=== PATIENT | male | born 1960 ===

== ENCOUNTER 2018-11-24 22:51 | Emergency (ER) | payer MEDICARE ==
[~2018-11-24 22:51] MED LIST: ETOMIDATE 20 MG/10 ML ONE; PROPOFOL 10 MG/ML, 100ML IV ONE; SUCCINYLCHOLINE 20 MG/ML, 10ML ONE
[2018-11-24] MEDS ORDERED: SODIUM CHLORIDE FLUSH 10ML SYR IVF ONE (23:00)
[2018-11-24] MEDS ORDERED: SODIUM CHLORIDE 0.9% 1,000ML IVBOLUS ONE (23:30)
--- NOTE | 2018-11-24 23:30 | NUR ---
PT BIB CARE FLIGHT WITH LOW BP 70/30 POOR O2 SATS @ 80% AND DIFFICULT TO AWAKEN. TRYING TO DERTRMINE CODE STATUS AT THIS TIME.
[2018-11-24] MEDS ORDERED: VANCOMYCIN 2,200 MG in SODIUM CHLORIDE 0.9% 500 ML IV ONE (23:45)
[2018-11-24 23:46] LABS: MEAN CORPUSCULAR HEMOGLOBIN 23.9 pg (27.5-34.5); MEAN CORPUSCULAR HGB CONC 31.4 g/dL (33.2-36.2); MEAN CORPUSCULAR VOLUME 75.9 fL (81-97); MEAN PLATELET VOLUME 8.3 fL (7.4-10.4); PLATELET COUNT 231 x10^3/uL (130-400); RED BLOOD COUNT 4.72 x10^6/uL (4.38-5.82); RED CELL DISTRIBUTION WIDTH 21.7 % (9.4-14.8)
[2018-11-24 23:48] LABS: ALANINE AMINOTRANSFERASE 39 U/L (12-78); ALBUMIN 1.8 g/dL (3.4-5.0); ANION GAP 10 mmol/L (5-15); CALCIUM 7.9 mg/dL (8.5-10.1); CHLORIDE 93 mmol/L (98-107); CREATININE 3.02 mg/dL (0.7-1.3)
[2018-11-24] MEDS ORDERED: FURO40TA6 PO (23:50)
[2018-11-24] MEDS ORDERED: FEBU40TA PO (23:50)
[2018-11-24] MEDS ORDERED: INSU100C SQ-INSULIN (23:50)
[2018-11-24] MEDS ORDERED: ATOR-2 PO (23:50)
[2018-11-24] MEDS ORDERED: FOLI-17 PO (23:50)
[2018-11-24] MEDS ORDERED: AMIO400T5 PO (23:50)
[2018-11-24] MEDS ORDERED: GABA300C10 PO (23:50)
[2018-11-24] MEDS ORDERED: LACT10SO28 PO (23:50)
[2018-11-24 23:52] LABS: ALKALINE PHOSPHATASE 179 U/L (45-117); BILIRUBIN,TOTAL 1.4 mg/dL (0.2-1.0); TOTAL PROTEIN 6.5 g/dL (6.4-8.2)
[2018-11-24 23:54] LABS: INTERNATIONAL NORMALIZED RATIO 2.79 (0.93-1.1); PROTHROMBIN TIME 28.2 Seconds (9.6-11.5)
[2018-11-24] MEDS ORDERED: LOPE2CAP PO (23:54)
[2018-11-24] MEDS ORDERED: LOSA50TA14 PO (23:54)
[2018-11-24] MEDS ORDERED: METO-290 PO (23:54)
[2018-11-24] MEDS ORDERED: MESA500C PO (23:54)
[2018-11-24 23:59] LABS: TROPONIN I 0.271 ng/mL (0.000-0.045)
[2018-11-24] MEDS ORDERED: POTA10TA11 PO (23:59)
[2018-11-24] MEDS ORDERED: WARF2TAB99 PO (23:59)
[2018-11-24] MEDS ORDERED: RANI150C PO (23:59)
[2018-11-24] MEDS ORDERED: CHOL100011 PO (23:59)
[2018-11-24] MEDS ORDERED: RIFA550T4 PO (23:59)
[2018-11-25] MEDS ORDERED: VANCOMYCIN PER PHARMACY MC PRN
[2018-11-25] MEDS ORDERED: CEFTRIAXONE PMX 1GM/50ML 50 ML IVPB ONE
[2018-11-25] MEDS ORDERED: DAPA1TAB4 PO
[2018-11-25] MEDS ORDERED: AZITHROMYCIN 500 MG in SODIUM CHLORIDE 0.9% 250 ML IVPB ONE
[2018-11-25 00:01] LABS: BASOPHILS # (AUTO) 0.11 x10^3/uL (0-0.1); BASOPHILS % (AUTO) 1 % (0-1); EOSINOPHILS % (AUTO) 0 % (1-7); LYMPHOCYTES # (AUTO) 0.73 x10^3/uL (1-3.4); LYMPHOCYTES % (AUTO) 5 % (22-44); MD MORPH REVIEW ONLY; MONOCYTES # (AUTO) 0.65 x10^3/uL (0.2-0.8); MONOCYTES % (AUTO) 5 % (2-9); NEUTROPHILS # (AUTO) 12.88 x10^3/uL (1.8-6.8); NEUTROPHILS % (AUTO) 90 % (42-75)
[2018-11-25 00:03] LABS: ANISOCYTOSIS 1+; MICROCYTOSIS 1+; OVALOCYTES 1+
[2018-11-25 00:04] LABS: <PLATELET ESTIMATE> ADEQUATE; <PLT MORPHOLOGY> NORMAL PLT MORPH; ACANTHOCYTES 1+; ECHINOCYTES 2+; POLYCHROMASIA 1+
[2018-11-25] MEDS ORDERED: CEFTRIAXONE PMX 1GM/50ML 50 ML ONE (00:09)
--- NOTE | 2018-11-25 00:30 | NUR ---
PT DETERMINED TO WANT TO HAVE LIFE SAVING EFFORTS. PT INTUBATED USING RSI AND CENTRAL LINE PLACED IN RIGHT IJ PLACED
[2018-11-25] MEDS ORDERED: PROPOFOL 100 ML IV PRN (00:54)
[2018-11-25] MEDS ORDERED: NOREPINEPHRINE 4 MG in SODIUM CHLORIDE 0.9% 246 ML IV PRN (00:54)
[2018-11-25] MEDS ORDERED: SUCCINYLCHOLINE 20 MG/ML, 10ML IVPush ONE (01:00)
[2018-11-25] MEDS ORDERED: ETOMIDATE 20 MG/10 ML IV ONE (01:00)
[2018-11-25] MEDS ORDERED: ASPIRIN 300 MG SUPP PR ONE (01:00)
[2018-11-25] MEDS ORDERED: SODIUM CHLORIDE 0.9% 1,000ML IVBOLUS ONE (01:00)
--- NOTE | 2018-11-25 01:30 | NUR ---
PT WITH BED CHANGED AND PT CLEANED AND BATISTA CATH PLACED. PT WITH SEDATION STARTED ORDERED AND OG PLACED. PT IS NOW STABLE WITH BP OF 97/45 AND O2 SATS AT 97% ON VENT AND A PACED RHYTHM OF 70.
[2018-11-25 01:32] VITALS: BP 97/42
--- NOTE | 2018-11-25 02:00 | NUR ---
NUMBER FOUND IN PTS WALLET AND PHONE WELL, HAVE REACHED OUT TO [facility] FOR NEXT OF KIN, STILL AWAITING INFORMATION, [employer] WELL ADVICE LINE RN NOTIFIED.
--- NOTE | 2018-11-25 02:00 | NUR ---
SEE CODE SHEET
--- NOTE | 2018-11-25 02:50 | NUR ---
INFO FROM [facility] FOR NEXT OF CONTACT TRANG MARCIAL [phone], NO ANSWER AND MAILBOX FULL PIECE OF PAPER IN [place] FOR [place] [phone] NO ANSWER, SEVERAL MESSAGES LEFT TO CALL HERE IVORY DOMINGUEZ [phone], NO ANSWER, MESSAGE LEFT
[2018-11-25] MEDS ORDERED: DOBUTAMINE 250 MG/20 ML ONE (03:37)
[2018-11-25] MEDS ORDERED: AMIODARONE 50 MG/ML, 3ML ONE ×2 (03:37→11:24)
[2018-11-25] MEDS ORDERED: CODE BLUE RESPONSE XX ONE (03:37)
[2018-11-25] MEDS ORDERED: EPINEPHRINE SYRINGE 0.1 MG/ML, 10ML ONE (03:37)
[2018-11-25] MEDS ORDERED: SODIUM CHLORIDE 0.9%, 250ML ONE (03:37)
--- NOTE | 2018-11-25 03:39 | NUR ---
CLOTHING WITH PT BODY TO [place], CELL PHONE AND WALLET TO SECURITY
--- NOTE | 2018-11-25 05:48 | NUR ---
ABDIRIZAK LEDESMA CALLS AT THIS TIME.
[2018-11-25] MEDS ORDERED: DEXTROSE 50%, 50ML SYRINGE ONE (11:24)
== END 2018-11-25 04:07 | disposition expired ==
LOC: ED 23:59
DX: I46.9 Cardiac arrest, cause unspecified (principal); R65.21 Severe sepsis with septic shock; J96.01 Acute respiratory failure with hypoxia; N17.9 Acute kidney failure, unspecified; I25.2 Old myocardial infarction; I50.9 Heart failure, unspecified; J15.9 Unspecified bacterial pneumonia; E10.65 Type 1 diabetes mellitus with hyperglycemia; I11.0 Hypertensive heart disease with heart failure; I48.92 Unspecified atrial flutter; E78.5 Hyperlipidemia, unspecified
CPT/HCPCS: 31500; 36556; 36600; 51702; 71045; 80053; 82140; 82803; 83605; 83880; 84145; 84484; 85025; 85610; 85730; 87040; 87070; 87205; 92950; 92960; 93005; 96365; 99291; 99292; J0282; J0330; J0696; J1250; J2704; J7030; J7050; 94002